=== PATIENT | male | born 1990 | race African-American/Black ===

== ENCOUNTER 2016-09-30 19:43 | Emergency (ER) | payer MEDICAID ==
[~2016-09-30] VITALS: Ht 175.3 cm; Wt 73.0 kg
[2016-09-30] MEDS ORDERED: IBUPROFEN 600MG TABLET PO ONE (22:30)
[2016-09-30 23:21] VITALS: BP 110/66
== END 2016-10-01 01:16 | disposition home or self-care (01) ==
LOC: ER 22:19
DX: S93.401A Sprain of unspecified ligament of right ankle, initial encounter (principal); F17.200 Nicotine dependence, unspecified, uncomplicated; X58.XXXA Exposure to other specified factors, initial encounter; Y93.67 Activity, basketball; Y92.89 Other specified places as the place of occurrence of the external cause; Y99.8 Other external cause status
CPT/HCPCS: 29515; 73610; 99284; Z7610